=== PATIENT | female | born 1965 | race Caucasian/White ===

== ENCOUNTER 2020-06-02 13:02 | Inpatient (IN) | payer MEDICARE, OTHER ==
[~2020-06-02] VITALS: Ht 157.5 cm; Wt 112.5 kg
[2020-06-02] MEDS ORDERED: ALBU18HF2 IH (13:49)
[2020-06-02] MEDS ORDERED: MAG355OR18 PO (13:49)
[2020-06-02] MEDS ORDERED: FURO-152 PO (13:49)
[2020-06-02] MEDS ORDERED: DULO60CA45 PO (13:49)
[2020-06-02] MEDS ORDERED: OXYC-133 PO (13:49)
[2020-06-02] MEDS ORDERED: POTA-10 PO (13:49)
[2020-06-02] MEDS ORDERED: LORA-259 PO (13:49)
[2020-06-02] MEDS ORDERED: TEMA15CA5 PO (13:49)
[2020-06-02] MEDS ORDERED: ACET-2154 PO (13:49)
[2020-06-02] MEDS ORDERED: MAGN400O6 PO (13:49)
[2020-06-02 14:22] LABS: CARBON DIOXIDE 27 mmol/L (21-32); CHLORIDE 102 mmol/L (98-107); CREATININE 0.7 mg/dL (0.6-1.3); GLUCOSE 122 mg/dL (74-106); POTASSIUM 4.2 mmol/L (3.5-5.1); UREA NITROGEN, BLOOD 16 mg/dL (7-18)
[2020-06-02 14:28] LABS: ALANINE AMINOTRANSFERASE 14 U/L (14-59); ALKALINE PHOSPHATASE 139 U/L (50-136); ASPARTATE AMINOTRANSFERASE 14 U/L (15-37); BILIRUBIN,DIRECT 0.1 mg/dL (0.0-0.2); BILIRUBIN,TOTAL 0.2 mg/dL (0.2-1.0)
[2020-06-02 14:34] LABS: BASOPHILS # (AUTO) 0.1 K/uL (0.0-8.0); BASOPHILS % (AUTO) 0.8 % (0.0-2.0); EOSINOPHILS # (AUTO) 0.1 K/uL (0.0-0.7); EOSINOPHILS % (AUTO) 1.7 % (0.0-7.0); HEMATOCRIT 44.4 % (31.2-41.9); HEMOGLOBIN 14.1 g/dL (10.9-14.3); LYMPHOCYTES # (AUTO) 1.6 K/uL (20.0-40.0); LYMPHOCYTES % (AUTO) 24.3 % (20.5-51.5); MEAN CORPUSCULAR HEMOGLOBIN 29.5 uug (24.7-32.8); MEAN CORPUSCULAR HGB CONC 32 g/dL (32.3-35.6); MEAN CORPUSCULAR VOLUME 92.8 fL (75.5-95.3); MONOCYTES # (AUTO) 0.6 K/uL (2.0-10.0); MONOCYTES % (AUTO) 8.7 % (0.0-11.0); NEUTROPHILS # (AUTO) 4.2 K/uL (1.8-8.9); NEUTROPHILS % (AUTO) 64.5 % (38.5-71.5); PLATELET COUNT (AUTO) 299 K/uL (179-408); RED BLOOD CELL COUNT(AUTO) 4.79 MIL/uL (3.63-4.92); WHITE BLOOD COUNT (AUTO) 6.5 K/uL (3.8-11.8)
[2020-06-02 14:42] LABS: ETHANOL < 3 MG/DL (0-0)
[2020-06-02 14:45] LABS: ACETAMINOPHEN < 2.0 ug/mL (10-30)
[2020-06-02 15:12] LABS: *BILIRUBIN,URIN NEGATIVE (NEGATIVE); *BLOOD, URINE NEGATIVE (NEGATIVE); *CLARITY,URINE CLEAR (CLEAR); *COLOR,URINE YELLOW (YELLOW); *KETONES,URINE NEGATIVE (NEGATIVE); *UROBILINOGEN,URINE 0.2 E.U./dl (NORMAL); LEUKOCYTE ESTERASE ,URINE NEGATIVE (NEGATIVE); NITRITE, URINE NEGATIVE (NEGATIVE); PH,URINE 7.5 (5.0-8.0); UGLUCOSE NEGATIVE (NEGATIVE)
[2020-06-02 15:18] LABS: *AMPHETAMINE, URINE NEGATIVE (NEGATIVE); *CANNABINOID, URINE NEGATIVE (NEGATIVE); *COCCAINE, URINE NEGATIVE (NEGATIVE); *OPIATE, URINE POSITIVE (NEGATIVE); *PHENCYCLIDINE SCREEN,URINE NEGATIVE (NEGATIVE)
[2020-06-02 16:01] LABS: *URINE HCG, QUAL NEG (NEGATIVE)
--- NOTE | 2020-06-02 19:05 | NUR ---
Patient is waiting for psych unit bed & nurse. Patient is resting comfortably on gurney with eyes closed.
--- NOTE | 2020-06-02 20:07 | NUR ---
SBAR REPORT TO ZANE NAIR FROM MHU, MRSA SWAB AND BELONGINGS LIST COMPLETED. PT TO RM 145B VIA .
[2020-06-02] MEDS ORDERED: MAGNESIUM HYDROXIDE 30 ML LIQUID UDC PO PRN ×2 (21:15→22:15)
[2020-06-02] MEDS ORDERED: ACETAMINOPHEN 325 MG TABLET PO PRN (21:15)
[2020-06-02] MEDS ORDERED: TEMAZEPAM 7.5 MG CAPSULE PO PRN (21:15)
[2020-06-02] MEDS ORDERED: MAG HYDROX/AL HYDROX/SIMETH 30 ML LIQUID UDC PO PRN ×2 (21:15→22:15)
[2020-06-02] MEDS ORDERED: BLOOD SUGAR DIAGNOSTIC 1 EACH STRIP VI ONE (21:15)
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
[2020-06-02] MEDS: LORAZEPAM 0.5 MG TABLET PO PRN (22:37)
[2020-06-02 22:55] VITALS: BP 141/90
[2020-06-02] MEDS: OXYCODONE/APAP 5-325 MG TABLET PO PRN (23:20)
[2020-06-02] MEDS: OXYCODONE HCL 5 MG TABLET PO PRN (23:21)
[2020-06-03] MEDS ORDERED: ALBUTEROL SULFATE 2.5 MG/3 ML NEBU NEB PRN (06:15)
[2020-06-03 08:54] VITALS: BP 127/79
[2020-06-03] MEDS: FUROSEMIDE 20 MG TABLET PO SCH ×2 (09:04→16:41)
[2020-06-03] MEDS: OXYCODONE/APAP 5-325 MG TABLET PO PRN ×2 (09:04→17:24)
[2020-06-03] MEDS: POTASSIUM CHLORIDE 10 MEQ TAB.PRT.SR PO SCH (09:04)
[2020-06-03] MEDS: NICOTINE 7 MG/24HR PATCH TD SCH (10:24)
--- NOTE | 2020-06-03 11:18 | NUR ---
Gps/Inside Sales Lead- Stayed in bed most of the morning. P.T. came to [facility]. pt., claimed having lower back pain and bilateral knee pain, will participate after pain meds.. pain med. offered, percocet 1 tab. po. but when P.Nathaniel. came back to work with here in 1 hour, pt. claimed she's tired , sleeping most of the morning
[2020-06-03 15:50] VITALS: BP 115/62
--- NOTE | 2020-06-03 18:10 | NUR ---
Gps/Accounting Technician- Patient stayed in her room , in bed most of the day, goes to [facility] bathroom using wheel chair. Complained of increased pain lower back and bilateral knee with mobility, offered prn percocet 1 tab, verbalized adequate relief. Noted reading book, claimed she like to read,encouraged verbalization of her feelings , claimed she is still feeling depress but denies any plan to hurt self.
[2020-06-03 20:00] VITALS: BP 125/83
[2020-06-03] MEDS ORDERED: TOPIRAMATE 100 MG TABLET PO SCH (22:45)
[2020-06-03] MEDS: CLONAZEPAM 0.5 MG TABLET PO SCH (23:53)
--- NOTE | 2020-06-04 00:51 | NUR ---
RECEIVED PATIENT IN HER ROOM.APPEARS DEPRESSED AND WITHDRAWN. HOWEVER DOES NOT HAVE ANY SUICIDAL INTENT.NO C/O PAIN MADE AT THIS TIME. ENCOURAGED VERBALIZATION OF FEELINGS BUT SHE REPLIED 'AM OK'. GAVE HER KLONOPIN AT 23;00. IN BED READING. SHE USES A W/C TO GET AROUND. VISUAL CHECKS MADE ON HER. WILL CONTINUE TO MONITOR.
--- NOTE | 2020-06-04 06:40 | NUR ---
SHE SLEPT FOR 4:30HOURS.
[2020-06-04 07:30] VITALS: BP 119/60
--- NOTE | 2020-06-04 08:44 | NUR ---
Firearms Report: Greige Mender completed and submitted a [employer] firearms report for 5150 grave disability certification. A copy of report has been placed in patient chart.
[2020-06-04] MEDS ORDERED: DULOXETINE 60 MG CAPSULE.DR PO SCH (09:00)
[2020-06-04] MEDS: NICOTINE 7 MG/24HR PATCH TD SCH (09:53)
[2020-06-04] MEDS: TOPIRAMATE 100 MG TABLET PO SCH ×2 (09:54→20:05)
[2020-06-04] MEDS: FUROSEMIDE 20 MG TABLET PO SCH ×2 (09:54→17:13)
[2020-06-04] MEDS: POTASSIUM CHLORIDE 10 MEQ TAB.PRT.SR PO SCH (09:55)
[2020-06-04] MEDS: CLONAZEPAM 0.5 MG TABLET PO SCH ×2 (09:55→20:04)
--- NOTE | 2020-06-04 10:21 | NUR ---
Initial Discharge Plan: Patient currently resides at [facility]. Per admin Eela, she will let this SW know if pt is welcomed back. Patient does not have any family members at this moment. Pt has a therapist Hardy ([phone]). This SW left a voicemail to discuss treatment and discharge plan. This SW will work with the MD and treatment team to help coordinate discharge plan.
--- NOTE | 2020-06-04 11:40 | NUR ---
Therapist Contact: Per pt's request, she wanted this SW to contact her therapist and to advise her that she is at [facility]. This SW left a voicemail to discuss treatment plan with Therapist Hardy ([phone]).
[2020-06-04] MEDS: risperiDONE 0.5 MG TABLET PO SCH ×2 (13:15→20:04)
--- NOTE | 2020-06-04 14:11 | NUR ---
GPS: Nursing Notes: Major Depression: Patient is awake and responding to her name, isolative and withdrawn in her room, loud and pressured speech, believes that we are not being giving her Cymbalta, but she has been taking Cymbalta, suspicious, guarded, stating "I am here because I need to Cymbalta..", gets easily irritable when redirected, episodes of crying during therapeutic groups, stated "I do not know why I am crying... I am feeling depressed... I do not know why..", compliant with her medications with a lot of encouragement, unable to formulate a viable plan for self care, continue with treatment plan.
--- NOTE | 2020-06-04 14:59 | NUR ---
JOHN Coordination of Care: This SW received a call from Helene Burger ([phone]) who stated that pt cannot return back to [facility]. This SW faxed clinicals to [facility] to Clary ([phone]) and faxed it to [facility]. This SW sent [facility] & [facility] psychiatric notes, progress notes, medication list, and laboratory. Addendum: 06/04/20 at 1517 by JOHN FLOWERS Disregard clinicals being sent to [facility], Dr. John will let JOHN know which facility.
[2020-06-04 16:10] VITALS: BP 130/80
[2020-06-04] MEDS: OXYCODONE/APAP 5-325 MG TABLET PO PRN (19:47)
[2020-06-04 20:00] VITALS: BP 131/82
[2020-06-05 07:30] VITALS: BP 112/66
[2020-06-05] MEDS: FUROSEMIDE 20 MG TABLET PO SCH ×2 (08:48→17:09)
[2020-06-05] MEDS: CLONAZEPAM 0.5 MG TABLET PO SCH ×2 (08:48→20:19)
[2020-06-05] MEDS: POTASSIUM CHLORIDE 10 MEQ TAB.PRT.SR PO SCH (08:48)
[2020-06-05] MEDS: risperiDONE 0.5 MG TABLET PO SCH (08:48)
[2020-06-05] MEDS: TOPIRAMATE 100 MG TABLET PO SCH (08:49)
[2020-06-05] MEDS: NICOTINE 7 MG/24HR PATCH TD SCH (08:49)
[2020-06-05] MEDS: OXYCODONE/APAP 5-325 MG TABLET PO PRN ×2 (08:49→17:11)
[2020-06-05] MEDS ORDERED: DULOXETINE 60 MG CAPSULE.DR PO SCH (09:00)
--- NOTE | 2020-06-05 15:26 | NUR ---
SW Collateral Contact: SW received a call from patient's outpatient psychologist Dr. Mario Alberto Dash ([phone]) and she wants to be informed of patient's discharge plan.
[2020-06-05 20:00] VITALS: BP 140/96
[2020-06-05] MEDS: TOPIRAMATE 25 MG TABLET PO SCH (20:18)
[2020-06-05] MEDS: BENZTROPINE MESYLATE 0.5 MG TABLET PO SCH (20:19)
[2020-06-05] MEDS: risperiDONE 1 MG TABLET PO SCH (20:19)
[2020-06-05] MEDS ORDERED: TOPIRAMATE 100 MG TABLET PO SCH (21:00)
--- NOTE | 2020-06-05 22:32 | NUR ---
Received OOB in wheelchair upon initial rounds. AAOx4 No acute distress noted. VSS . Compliant with meds. Tolerated well. No signs of agitation or behavioral issues noted. Will monitor patient.
--- NOTE | 2020-06-06 05:26 | NUR ---
Slept well throughout the night. In no distress. VSS. Continent of bowel and bladder. Quiet night.
[2020-06-06 07:30] VITALS: BP 102/59
[2020-06-06] MEDS: FUROSEMIDE 20 MG TABLET PO SCH ×2 (08:20→17:35)
[2020-06-06] MEDS: TOPIRAMATE 25 MG TABLET PO SCH (08:20)
[2020-06-06] MEDS: CLONAZEPAM 0.5 MG TABLET PO SCH ×2 (08:20→20:20)
[2020-06-06] MEDS: risperiDONE 0.5 MG TABLET PO SCH (08:20)
[2020-06-06] MEDS: DULOXETINE 30 MG CAPSULE.DR PO SCH (08:20)
[2020-06-06] MEDS: BENZTROPINE MESYLATE 0.5 MG TABLET PO SCH ×3 (08:20→20:28)
[2020-06-06] MEDS: NICOTINE 7 MG/24HR PATCH TD SCH (08:21)
[2020-06-06] MEDS ORDERED: DULOXETINE 60 MG CAPSULE.DR PO SCH (09:00)
--- NOTE | 2020-06-06 09:11 | NUR ---
JHON Coordination of Care: SW faxed patient's referral packet to [facility] ([phone]) attention to Patrick.
[2020-06-06] MEDS: POTASSIUM CHLORIDE 10 MEQ TAB.PRT.SR PO SCH (09:12)
[2020-06-06] MEDS: OXYCODONE/APAP 5-325 MG TABLET PO PRN ×2 (09:30→17:57)
[2020-06-06] MEDS ORDERED: TOPIRAMATE 25 MG TABLET PO ONE (10:30)
--- NOTE | 2020-06-06 14:54 | NUR ---
SNF Contact: This SW received a phone call from Patrick venegas who stated patient is accepted at [facility] ([phone]).
[2020-06-06 16:00] VITALS: BP 119/92
[2020-06-06] MEDS: risperiDONE 1 MG TABLET PO SCH (20:20)
[2020-06-06] MEDS: TOPIRAMATE 100 MG TABLET PO SCH (20:21)
[2020-06-06 20:43] VITALS: BP 126/90
[2020-06-06] MEDS ORDERED: TOPIRAMATE 100 MG TABLET PO SCH ×2 (21:00)
[2020-06-07] MEDS: OXYCODONE/APAP 5-325 MG TABLET PO PRN ×4 (01:07→21:50)
--- NOTE | 2020-06-07 02:31 | NUR ---
Received patient in the hallway, patient pleasant, med compliant, no behavioral issue. Patient interacts with staff and certain staff. Patient will remain a psych facility for further evaluation and treatment.
[2020-06-07 07:30] VITALS: BP 131/79
--- NOTE | 2020-06-07 07:33 | NUR ---
received patient aox2-3, on her wheelchair, compliant with medication, patient having pain, asking for percocet, and wanting her medication to be increased, called and informed MD, seen and examined by Dr. John via telemed, on monitoring for Q15 minutes
[2020-06-07] MEDS: BENZTROPINE MESYLATE 0.5 MG TABLET PO SCH ×2 (08:24→20:28)
[2020-06-07] MEDS: POTASSIUM CHLORIDE 10 MEQ TAB.PRT.SR PO SCH (08:25)
[2020-06-07] MEDS: risperiDONE 0.5 MG TABLET PO SCH (08:25)
[2020-06-07] MEDS: DULOXETINE 30 MG CAPSULE.DR PO SCH (08:25)
[2020-06-07] MEDS: CLONAZEPAM 0.5 MG TABLET PO SCH ×2 (08:25→20:29)
[2020-06-07] MEDS: FUROSEMIDE 20 MG TABLET PO SCH ×2 (08:25→16:07)
[2020-06-07] MEDS: TOPIRAMATE 100 MG TABLET PO SCH ×2 (08:31→20:56)
[2020-06-07] MEDS: NICOTINE 7 MG/24HR PATCH TD SCH (08:32)
--- NOTE | 2020-06-07 10:42 | NUR ---
PC Hearing: Patient's 5250 is upheld for GD.
[2020-06-07 15:26] VITALS: BP 146/88
--- NOTE | 2020-06-07 17:52 | NUR ---
patient been calm cooperative, able to redirect, patient able to transfer her self in the wheelchair, took shower today, manage pain , pain medication given as ordered, patient compliant with medication, monitored [id number] for safety, no sign of distress
[2020-06-07 20:00] VITALS: BP 138/90
[2020-06-07] MEDS: risperiDONE 1 MG TABLET PO SCH (20:28)
--- NOTE | 2020-06-08 05:32 | NUR ---
Patient was cooperative with meds and care during shift. Denied SI/HI, but C/o pain and PRN was given as order, noted effective and no new c/o noted. Pt sociable with others and staffs. Slept well during night and continue monitor with head count done.
--- NOTE | 2020-06-08 07:25 | NUR ---
RECEIVED PATIENT AOX3, PATIENT CALM COOPERATIVE, VERBALIZES OF PAIN, PAIN MEDS GIVEN ORDERED, ASSISTED WITH ADL, DENIES SI AND HI, PATIENT COMPLIANT WITH MEDICATION
[2020-06-08 07:30] VITALS: BP 117/76
[2020-06-08] MEDS: POTASSIUM CHLORIDE 10 MEQ TAB.PRT.SR PO SCH (08:11)
[2020-06-08] MEDS: risperiDONE 0.5 MG TABLET PO SCH (08:11)
[2020-06-08] MEDS: FUROSEMIDE 20 MG TABLET PO SCH ×2 (08:11→16:07)
[2020-06-08] MEDS: CLONAZEPAM 0.5 MG TABLET PO SCH ×2 (08:11→20:03)
[2020-06-08] MEDS: DULOXETINE 30 MG CAPSULE.DR PO SCH ×2 (08:11→16:07)
[2020-06-08] MEDS: TOPIRAMATE 100 MG TABLET PO SCH ×2 (08:12→20:03)
[2020-06-08] MEDS: BENZTROPINE MESYLATE 0.5 MG TABLET PO SCH ×2 (08:12→20:04)
[2020-06-08] MEDS: NICOTINE 7 MG/24HR PATCH TD SCH (08:13)
[2020-06-08] MEDS: OXYCODONE/APAP 5-325 MG TABLET PO PRN ×3 (09:13→23:24)
[2020-06-08 16:32] VITALS: BP 152/97
--- NOTE | 2020-06-08 17:39 | NUR ---
patient been calm , cooperative, denies SI and Hi, seen participating with group , patient interacting with staff and other patient, patient asked for pain medication, pain meds given as ordered, patient seen coloring some art work in her room, patient been behaving appropriately , monitored [id number] for safety , no sign of any distress, patient assisted with ADLs,
[2020-06-08] MEDS: risperiDONE 1 MG TABLET PO SCH (20:04)
[2020-06-08 20:15] VITALS: BP 132/95
--- NOTE | 2020-06-09 05:57 | NUR ---
Pt noted in her room sitting up in w/c and coloring, verbally responded, and denied SI. Pt said she likes to color to take her mind off her problems. Cooperative with care and meds, will continue monitor. Pt c/o general pain and PRN given as order and was effective. Pt slept comfortable during night.
[2020-06-09] MEDS: PANTOPRAZOLE SODIUM 40 MG TABLET.DR PO SCH (06:21)
[2020-06-09 07:30] VITALS: BP 135/88
--- NOTE | 2020-06-09 07:30 | NUR ---
Received patient AOx3-4, patient calm sitting in her wheelchair, patient doing some art work patient cooperative, compliant with medication on monitoring for Safety and Falls, patient denies SI and HI at this time , no sign of distress
[2020-06-09] MEDS: FUROSEMIDE 20 MG TABLET PO SCH ×2 (08:02→16:04)
[2020-06-09] MEDS: POTASSIUM CHLORIDE 10 MEQ TAB.PRT.SR PO SCH (08:02)
[2020-06-09] MEDS: risperiDONE 0.5 MG TABLET PO SCH (08:02)
[2020-06-09] MEDS: TOPIRAMATE 100 MG TABLET PO SCH ×2 (08:02→20:35)
[2020-06-09] MEDS: DULOXETINE 30 MG CAPSULE.DR PO SCH ×2 (08:02→16:04)
[2020-06-09] MEDS: NICOTINE 7 MG/24HR PATCH TD SCH (08:02)
[2020-06-09] MEDS: CLONAZEPAM 0.5 MG TABLET PO SCH ×2 (08:02→20:35)
[2020-06-09] MEDS: BENZTROPINE MESYLATE 0.5 MG TABLET PO SCH ×2 (08:02→20:35)
[2020-06-09] MEDS: OXYCODONE/APAP 5-325 MG TABLET PO PRN ×3 (09:04→23:19)
[2020-06-09 15:01] VITALS: BP 133/85
--- NOTE | 2020-06-09 18:03 | NUR ---
patient took afternoon nap, patient been calm cooperative, redirectable, was monitored [id number] for safety, no sign of distress,
[2020-06-09 19:52] VITALS: BP 113/76
[2020-06-09] MEDS: risperiDONE 1 MG TABLET PO SCH (20:35)
--- NOTE | 2020-06-09 23:15 | NUR ---
PRN Medication Response Note: Pt c/o stomach upset and indigestion. Maalox 30ml administered at 2230 with good effect, Pt expressed relief. Will continue to monitor.
--- NOTE | 2020-06-10 00:15 | NUR ---
PRN Medication Response Note: Pt c/o 01/25 chronic, aching back pain, Percocet administered with good effect. Pt expressed relief.
[2020-06-10] MEDS: PANTOPRAZOLE SODIUM 40 MG TABLET.DR PO SCH (06:16)
--- NOTE | 2020-06-10 06:49 | NUR ---
A+Ox3, chronic pain controlled effectively with Percocet prn. VS stable. Pt denies SI and vaguely verbally contracts for safety, but is unreliable due to her statements of "If I have to go back to that facility, I'd rather " or "I will be suicidal if I get discharged to [facility]." Pt denies any plan or means. Exhibits flat affect and presents with low mood. Pt encouraged to verbalize her emotions, positive reinforcement provided. Pt encouraged to interact with her peers and attend groups in order to learn and utilize positive coping skills. Compliant with medications, cooperative with staff direction.
[2020-06-10 07:30] VITALS: BP 116/74
[2020-06-10] MEDS: OXYCODONE/APAP 5-325 MG TABLET PO PRN ×3 (08:01→22:51)
[2020-06-10] MEDS: FUROSEMIDE 20 MG TABLET PO SCH ×2 (08:02→16:02)
[2020-06-10] MEDS: TOPIRAMATE 100 MG TABLET PO SCH ×2 (08:02→20:06)
[2020-06-10] MEDS: BENZTROPINE MESYLATE 0.5 MG TABLET PO SCH ×2 (08:02→20:06)
[2020-06-10] MEDS: risperiDONE 0.5 MG TABLET PO SCH (08:02)
[2020-06-10] MEDS: CLONAZEPAM 0.5 MG TABLET PO SCH ×2 (08:02→20:05)
[2020-06-10] MEDS: DULOXETINE 30 MG CAPSULE.DR PO SCH ×2 (08:02→16:02)
[2020-06-10] MEDS: POTASSIUM CHLORIDE 10 MEQ TAB.PRT.SR PO SCH (08:02)
[2020-06-10] MEDS: NICOTINE 7 MG/24HR PATCH TD SCH (08:02)
[2020-06-10 15:12] VITALS: BP 109/67
[2020-06-10] MEDS: LORAZEPAM 0.5 MG TABLET PO PRN (19:18)
[2020-06-10 20:04] VITALS: BP 116/68
[2020-06-10] MEDS: risperiDONE 1 MG TABLET PO SCH (20:05)
--- NOTE | 2020-06-10 20:10 | NUR ---
PRN Response Note: Pt c/o increased anxiety due to arguing with her roommate. Ativan 0.5mg administered at 1918 with minimal effect. Pt administered scheduled HS Klonopin 0.5mg with her other HS medications. Will monitor for effect.
[2020-06-11] MEDS: ACETAMINOPHEN 325 MG TABLET PO PRN ×2 (05:17→12:16)
[2020-06-11] MEDS: OXYCODONE HCL 5 MG TABLET PO PRN ×2 (05:17→12:16)
[2020-06-11] MEDS: PANTOPRAZOLE SODIUM 40 MG TABLET.DR PO SCH (06:21)
--- NOTE | 2020-06-11 06:31 | NUR ---
VS stable, chronic neck and back pain effectively controlled with analgesic medications. Pt remains depressed, but with a brighter affect this shift. Attended one group yesterday, minimal interaction noted with her peers. Focused on and needy with narcotic medications, education and firm limits provided. Denies current SI, verbally contracts for safety.
[2020-06-11 07:30] VITALS: BP 124/75
[2020-06-11] MEDS: NICOTINE 7 MG/24HR PATCH TD SCH (09:02)
[2020-06-11] MEDS: TOPIRAMATE 100 MG TABLET PO SCH (09:02)
[2020-06-11] MEDS: DULOXETINE 30 MG CAPSULE.DR PO SCH ×2 (09:03→17:13)
[2020-06-11] MEDS: FUROSEMIDE 20 MG TABLET PO SCH ×2 (09:03→17:12)
[2020-06-11] MEDS: POTASSIUM CHLORIDE 10 MEQ TAB.PRT.SR PO SCH (09:03)
[2020-06-11] MEDS: CLONAZEPAM 0.5 MG TABLET PO SCH ×2 (09:03→20:08)
[2020-06-11] MEDS: BENZTROPINE MESYLATE 0.5 MG TABLET PO SCH ×2 (09:03→20:09)
[2020-06-11] MEDS: risperiDONE 0.5 MG TABLET PO SCH (09:03)
--- NOTE | 2020-06-11 12:03 | NUR ---
SNF Referral: JOHN faxed a SNF referral to [facility] with attn to Patrick to the fax number: [phone].
[2020-06-11 15:33] VITALS: BP 120/76
--- NOTE | 2020-06-11 15:50 | NUR ---
patient is alert and oriented x4. she is cooperative, redirectable, and has appropriate interaction with staff. patient is adherent with medication, no adverse reaction noted. patient states that she is depressed and angry because she is not receiving the "correct" doses of her medication per her previous history and psychiatrist she was seeing in 2018. patient states that not receiving the correct doses she used to be taking makes her feel suicidal, with no concrete plan. patient provided with education about impulse control, educated to communicate her needs to her assigned psychiatrist. patient denies current SI/HI, denies AH/VH. patient instructed to communicate her needs appropriately. she is encouraged to participate in the unit groups and therapeutic milieu.
[2020-06-11] MEDS: OXYCODONE/APAP 5-325 MG TABLET PO PRN (18:45)
[2020-06-11] MEDS: LORAZEPAM 0.5 MG TABLET PO PRN (19:40)
[2020-06-11] MEDS: risperiDONE 1 MG TABLET PO SCH (20:08)
[2020-06-11 20:16] VITALS: BP 128/81
[2020-06-11] MEDS ORDERED: TOPIRAMATE 25 MG TABLET PO SCH (21:00)
[2020-06-12] MEDS: OXYCODONE HCL 5 MG TABLET PO PRN ×2 (00:15→10:05)
[2020-06-12] MEDS ORDERED: LORAZEPAM 0.5 MG TABLET ONE (01:16)
[2020-06-12] MEDS: ACETAMINOPHEN 325 MG TABLET PO PRN ×2 (01:22→11:25)
[2020-06-12] MEDS: LORAZEPAM 0.5 MG TABLET PO PRN (01:22)
[2020-06-12] MEDS: PANTOPRAZOLE SODIUM 40 MG TABLET.DR PO SCH (06:42)
[2020-06-12 07:30] VITALS: BP 117/72
[2020-06-12] MEDS: CLONAZEPAM 0.5 MG TABLET PO SCH ×2 (08:31→20:48)
[2020-06-12] MEDS: BENZTROPINE MESYLATE 0.5 MG TABLET PO SCH ×2 (08:31→20:48)
[2020-06-12] MEDS: FUROSEMIDE 20 MG TABLET PO SCH ×2 (08:32→16:09)
[2020-06-12] MEDS: POTASSIUM CHLORIDE 10 MEQ TAB.PRT.SR PO SCH (08:32)
[2020-06-12] MEDS: risperiDONE 0.5 MG TABLET PO SCH (08:32)
[2020-06-12] MEDS: DULOXETINE 30 MG CAPSULE.DR PO SCH ×2 (08:32→16:09)
[2020-06-12] MEDS: NICOTINE 7 MG/24HR PATCH TD SCH (08:33)
[2020-06-12] MEDS: TOPIRAMATE 100 MG TABLET PO SCH ×2 (08:47→20:50)
[2020-06-12 16:00] VITALS: BP 118/79
[2020-06-12] MEDS: OXYCODONE/APAP 5-325 MG TABLET PO PRN ×2 (16:08→22:14)
--- NOTE | 2020-06-12 19:45 | NUR ---
Received patient in wheelchair,able to wheel self.Alert and able to make needs known.Denies SI/HI at this time.Per patient she's disappointed because [facility] .Pt c/o back pain ,offered pain medication but refused at this time stated she will wait for percocet which will be due later.Due meds given and Will continue to monitor.VSS
[2020-06-12 20:17] VITALS: BP 146/74
[2020-06-12] MEDS: risperiDONE 1 MG TABLET PO SCH (20:50)
--- NOTE | 2020-06-13 06:16 | NUR ---
Patient slept well through out the night ,hours of sleep 6 05/19 .
[2020-06-13] MEDS: PANTOPRAZOLE SODIUM 40 MG TABLET.DR PO SCH (06:41)
[2020-06-13 07:30] VITALS: BP 134/83
[2020-06-13] MEDS: OXYCODONE/APAP 5-325 MG TABLET PO PRN ×3 (08:25→21:40)
[2020-06-13] MEDS: NICOTINE 7 MG/24HR PATCH TD SCH (08:25)
[2020-06-13] MEDS: DULOXETINE 30 MG CAPSULE.DR PO SCH ×2 (08:26→17:35)
[2020-06-13] MEDS: risperiDONE 0.5 MG TABLET PO SCH (08:26)
[2020-06-13] MEDS: CLONAZEPAM 0.5 MG TABLET PO SCH ×2 (08:26→20:22)
[2020-06-13] MEDS: TOPIRAMATE 100 MG TABLET PO SCH ×2 (08:26→20:22)
[2020-06-13] MEDS: POTASSIUM CHLORIDE 10 MEQ TAB.PRT.SR PO SCH (08:26)
[2020-06-13] MEDS: BENZTROPINE MESYLATE 0.5 MG TABLET PO SCH ×2 (08:26→20:22)
[2020-06-13] MEDS: FUROSEMIDE 20 MG TABLET PO SCH ×2 (08:26→17:35)
--- NOTE | 2020-06-13 10:43 | NUR ---
[facility] Psychologist Contact: JOHN received a call from [facility] Psychologist, Dr. Waters ([phone]), who stated that she has a long history of working with the pt and believes that the pt would benefit from discharging to [facility]. She asked that the SW fax over a discharge summary to her at the fax number: [phone] the following day.
[2020-06-13 16:22] VITALS: BP 136/86
[2020-06-13 20:00] VITALS: BP 137/89
[2020-06-13] MEDS: risperiDONE 1 MG TABLET PO SCH (20:22)
[2020-06-14] MEDS: OXYCODONE/APAP 5-325 MG TABLET PO PRN ×2 (03:43→10:17)
[2020-06-14] MEDS: PANTOPRAZOLE SODIUM 40 MG TABLET.DR PO SCH (06:18)
[2020-06-14 07:30] VITALS: BP 100/64
[2020-06-14] MEDS: risperiDONE 0.5 MG TABLET PO SCH (08:45)
[2020-06-14] MEDS: CLONAZEPAM 0.5 MG TABLET PO SCH (08:45)
[2020-06-14] MEDS: FUROSEMIDE 20 MG TABLET PO SCH (08:45)
[2020-06-14] MEDS: BENZTROPINE MESYLATE 0.5 MG TABLET PO SCH (08:45)
[2020-06-14] MEDS: TOPIRAMATE 100 MG TABLET PO SCH (08:45)
[2020-06-14] MEDS: POTASSIUM CHLORIDE 10 MEQ TAB.PRT.SR PO SCH (08:46)
[2020-06-14] MEDS: DULOXETINE 30 MG CAPSULE.DR PO SCH (08:46)
[2020-06-14] MEDS: NICOTINE 7 MG/24HR PATCH TD SCH (08:46)
--- NOTE | 2020-06-14 08:52 | NUR ---
Discharge Note: Pt will be discharged to [facility] located at the address: [address] [place] [address]; ([phone]). Pt will be transported via [facility] at 12PM. Pts [facility] Psychologist, Dr. Mario Alberto Dash ([phone]), was informed of the discharge and placement. Upon discharge, the pt appears to be in a dysphoric mood and presented with an anxious affect. Pt denies both suicidal and homicidal ideation as well as auditory and visual hallucinations. Pt appears to be alert and oriented x4 (time, place, self and situation). Pt appears to be well groomed and appropriately dressed. Pt appears to be non-ambulatory and requires wheelchair assistance. Pt will continue to be under the care of her psychiatrist, Dr. Kim, [place] [address] [place] [address]; and her web user experience strategist, Dr. Kingsley, located at [address] [facility] [address], [place] [address]; . Pt signed the Choice of Vendor form and the multidisciplinary exit care form was done, printed, signed, and given to the patient.
--- NOTE | 2020-06-14 11:25 | NUR ---
[facility] Psychologist Contact: JOHN faxed a discharge clinical to pts [facility] psychologist, Dr. Mario Alberto Dash ([phone]), to the fax number: [phone]
--- NOTE | 2020-06-14 13:35 | NUR ---
Pt is being discharged to [facility] via Ambulance. No distress noted. Report was called and given to HUI Santamaria. All paperwork signed and belongings returned.
== END 2020-06-14 14:00 | DRG 885 ==
LOC: ER 13:04 → GPS 17:50
PROVIDERS: ADMIT Psychiatry & Neurology Psychiatry; ATTEND Nurse Practitioner Acute Care
DX: F25.0 Schizoaffective disorder, bipolar type (principal); E44.1 Mild protein-calorie malnutrition; Z68.42 Body mass index [BMI] 45.0-49.9, adult; F41.9 Anxiety disorder, unspecified; J44.9 Chronic obstructive pulmonary disease, unspecified; E78.5 Hyperlipidemia, unspecified; G89.4 Chronic pain syndrome; I10 Essential (primary) hypertension; Z79.891 Long term (current) use of opiate analgesic; Z73.6 Limitation of activities due to disability; F32.9 Major depressive disorder, single episode, unspecified; F60.3 Borderline personality disorder; F41.0 Panic disorder [episodic paroxysmal anxiety]; Z20.822 Contact with and (suspected) exposure to COVID-19
CPT/HCPCS: 36415; 84703; 85025; A4663; A9150; G0480